=== PATIENT | male | born 1970 | race Caucasian/White ===

== ENCOUNTER 2019-11-13 08:26 | Emergency (ER) | payer BC ==
[~2019-11-13] VITALS: Ht 185.4 cm; Wt 100.0 kg
[2019-11-13] MEDS ORDERED: IV NORMAL SALINE 1,000ML 1,000 ML IV SCH (08:42)
[2019-11-13 08:46] VITALS: BP 161/88
--- NOTE | 2019-11-13 08:48 | PHYS DOC ---
Past History Past Medical History: Anxiety, Hypertension Additional Past Medical Histor: Prediabetic Smoking: Non-smoker General Adult EDM: Chief Complaint: SHORTNESS OF BREATH HPI: HPI: Patient is a 49-year-old male who presents to the emergency department for evaluation. The patient states that he awoke this morning and felt his heart beating fast, which seemed to worsen when he got to work. He denies any significant shortness of breath, (despite shortness of breath being listed as the chief complaint), and has not had any pain, including any chest pain. He denies any exertional dyspnea or exertional chest pain, diaphoresis, nausea, or vomiting. He does admit to an underlying history of anxiety. He states he does feel somewhat anxious today. There are no alleviating or exacerbating factors to his symptoms. Review of Systems: Review of Systems: Constitutional: Denies fever or chills Eyes: Denies change in visual acuity HENT: Denies nasal congestion or sore throat Respiratory: Denies cough or shortness of breath Cardiovascular: Denies chest pain or edema. Reports palpitations. GI: Denies abdominal pain, nausea, vomiting, bloody stools or diarrhea : Denies dysuria Musculoskeletal: Denies back pain or joint pain Integument: Denies rash Neurologic: Denies headache, focal weakness or sensory changes Endocrine: Denies polyuria or polydipsia Lymphatic: Denies swollen glands. Psychiatric: Denies depression. Reports anxiety. Heart Score: Risk Factors: Risk Factors: DM, Current or recent (<one month) smoker, HTN, HLP, family history of CAD, obesity. Risk Scores: Score 0 - 3: 2.5% MACE over next 6 weeks - Discharge Home Score 4 - 6: 20.3% MACE over next 6 weeks - Admit for Clinical Observation Score 7 - 10: 72.7% MACE over next 6 weeks - Early Invasive Strategies Current Medications: Current Meds: Current Medications Medications (Trade) Dose Ordered Sig/Pedro Start Time Stop Time Status Last Admin Dose Admin Lorazepam (Ativan Inj) 1 mg 1X ONCE 11/13/19 08:45 11/13/19 08:46 UNV Sodium Chloride 1,000 ml @ 1,000 mls/hr Q1H 11/13/19 08:42 11/13/19 09:41 UNV Physical Exam: PE: PHYSICAL EXAM: CONSTITUTIONAL: Well developed, well nourished HEAD: normocephalic, atraumatic EENT: PERRL, EOMI. Conjunctivae normal color, sclerae non-icteric; moist mucous membranes. NECK: Supple, non-tender; no meningismus. LUNGS: Lungs CTA, breathing even and unlabored. Normal air movement. HEART: Regular tachycardia, no murmur CHEST: No deformity; non-tender ABDOMEN: The abdomen is soft, and non-tender, no masses or bruits. EXTREM: Normal ROM; no deformity, no calf tenderness. Normal pulses palpable in all extremities. There is no pedal edema. SKIN: No rash; no diaphoresis NEURO: Alert; normal speech and cognition; CN's grossly intact; strength grossly intact without focal deficit. BACK: No CVA TTP. PSYCHIATRIC: The patient appears mildly anxious. Current Patient Data: Labs: Laboratory Tests Test 11/13/19 08:37 White Blood Count 5.7 x10^3/uL Red Blood Count 5.42 x10^6/uL Hemoglobin 16.1 g/dL Hematocrit 46.8 % Mean Corpuscular Volume 86 fL Mean Corpuscular Hemoglobin 30 pg Mean Corpuscular Hemoglobin Concent 34 g/dL Red Cell Distribution Width 13.3 % Platelet Count 279 x10^3/uL Neutrophils (%) (Auto) 65 % Lymphocytes (%) (Auto) 25 % Monocytes (%) (Auto) 8 % Eosinophils (%) (Auto) 1 % Basophils (%) (Auto) 1 % Neutrophils # (Auto) 3.7 x10^3uL Lymphocytes # (Auto) 1.4 x10^3/uL Monocytes # (Auto) 0.5 x10^3/uL Eosinophils # (Auto) 0.1 x10^3/uL Basophils # (Auto) 0.0 x10^3/uL D-Dimer (Ce) 0.64 mg/L Sodium Level 136 mmol/L Potassium Level 4.3 mmol/L Chloride Level 100 mmol/L Carbon Dioxide Level 26 mmol/L Anion Gap 10 Blood Urea Nitrogen 18 mg/dL Creatinine 1.2 mg/dL Estimated GFR (Cockcroft-Gault) 64.4 BUN/Creatinine Ratio 15 Glucose Level 179 mg/dL Calcium Level 9.4 mg/dL Total Bilirubin 0.8 mg/dL Aspartate Amino Transf (AST/SGOT) 27 U/L Alanine Aminotransferase (ALT/SGPT) 56 U/L Alkaline Phosphatase 59 U/L Troponin I Quantitative < 0.017 ng/mL Total Protein 7.6 g/dL Albumin 4.4 g/dL Albumin/Globulin Ratio 1.4 Current Medications Medications (Trade) Dose Ordered Sig/Pedro Route PRN Reason Start Time Stop Time Status Last Admin Dose Admin Sodium Chloride 1,000 ml @ 1,000 mls/hr Q1H IV 11/13/19 08:42 11/13/19 09:41 DC 11/13/19 08:42 Lorazepam (Ativan Inj) 1 mg 1X ONCE IVP 11/13/19 08:45 11/13/19 08:58 DC 11/13/19 09:09 EKG: EKG: [] Sinus tachycardia rate of 118 bpm, normal axis, normal intervals. There are no acute ischemic ST/T changes. Radiology/Procedures: Radiology/Procedures: PROCEDURE: PORTABLE CHEST 1V Examination: PORTABLE CHEST 1V History: Reason: sob / Spl. Instructions: / History: Comparison/Correlation: 04/03/2009 Portable Chest X-ray Exam Findings: Upright frontal views of the chest were obtained. Heart size and pulmonary vasculature are normal. No infiltrate, pneumothorax, or pleural effusion. Bony structures are grossly unremarkable. Impression: No active disease.[] Course & Med Decision Making: Course & Med Decision Making Pertinent Labs and Imaging studies reviewed. (See chart for details) [] 11 AM: The patient's condition remains stable, his heart rate is 100 resting at this time. He is asymptomatic at this time. I discussed test results with the patient, the need for close outpatient follow-up, and return precautions. I did recommend he see his PCP to evaluate for possible elevated thyroid function testing giving his mild tachycardia, add of proportion for what would be expected. Thyroid testing is unavailable at this facility in the emergency department. Dragon Disclaimer: Dragon Disclaimer: This electronic medical record was generated, in whole or in part, using a voice recognition dictation system. Departure Departure: Impression: Primary Impression: Palpitations Disposition: 01 HOME/RESIDENCE PRIOR TO ADM Condition: STABLE Referrals: IDALIA BABIN MD (PCP) Patient Instructions: Acute Bronchitis, Anxiety and Panic Attacks, Nonspecific Tachycardia, Palpitations Additional Instructions: Follow-up with your primary care provider, for further evaluation and testing, as needed. Please call today to make an appointment. Scripts Azithromycin (ZITHROMAX) 250 Mg Tablet 1 PKG PO UD for -, #6 TAB Prov: MARIA D HUIZAR MD 11/13/19 Justification of Admission: Justification of Admission: Justification of Admission Dx: N/A MARIA D HUIZAR MD Nov 13, 2019 08:48
[2019-11-13 09:07] LABS: BASO % 1 % (0-3); EOS # 0.1 x10^3/uL (0.0-0.7); EOS % 1 % (0-3); HEMATOCRIT 46.8 % (39.0-53.0); HEMOGLOBIN 16.1 g/dL (13.0-17.5); LYMPH # 1.4 x10^3/uL (1.0-4.8); LYMPH % 25 % (24-48); MEAN CORPUSCULAR HEMOGLOBIN 30 pg (25-35); MEAN CORPUSCULAR HGB CONC 34 g/dL (31-37); MEAN CORPUSCULAR VOLUME 86 fL (79-100); MONO # 0.5 x10^3/uL (0.0-1.1); MONO % 8 % (0-9); NEUT # 3.7 x10^3uL (1.8-7.7); NEUT % 65 % (31-73); PLATELET COUNT 279 x10^3/uL (140-400); RED BLOOD COUNT 5.42 x10^6/uL (4.30-5.70); RED CELL DISTRIBUTION WIDTH 13.3 % (11.5-14.5); WHITE BLOOD COUNT 5.7 x10^3/uL (4.0-11.0)
--- NOTE | 2019-11-13 09:13 | RAD ---
Examination: PORTABLE CHEST 1V History: Reason: sob / Spl. Instructions: / History: Comparison/Correlation: 04/03/2009 Portable Chest X-ray Exam Findings: Upright frontal views of the chest were obtained. Heart size and pulmonary vasculature are normal. No infiltrate, pneumothorax, or pleural effusion. Bony structures are grossly unremarkable. Impression: No active disease. Electronically signed by: Marco Loja MD (11/13/2019 9:10 AM) [id number]
[2019-11-13 09:20] LABS: CALCIUM 9.4 mg/dL (8.5-10.1); CREATININE 1.2 mg/dL (0.7-1.3); GFR 64.4; POTASSIUM 4.3 mmol/L (3.5-5.1)
[2019-11-13 09:29] LABS: ALBUMIN 4.4 g/dL (3.4-5.0); ALBUMIN/GLOBULIN RATIO 1.4 (1.0-1.7); TOTAL BILIRUBIN 0.8 mg/dL (0.2-1.0); TOTAL PROTEIN 7.6 g/dL (6.4-8.2)
[2019-11-13] MEDS ORDERED: IOHEXOL 350 MG/ML 100 ML VIAL. IV ONE (10:00)
--- NOTE | 2019-11-13 10:55 | RAD ---
Examination: CT angiography chest with IV contrast HISTORY: History of shortness of breath, pulmonary embolism COMPARISON: None available TECHNIQUE: Axial CT angiographic images of chest were performed with IV contrast. Coronal and sagittal 3-D MIP reformats are performed. Exposure: One or more of the following individualized dose reduction techniques were utilized for this examination: 1. Automated exposure control 2. Adjustment of the mA and/or kV according to patient size 3. Use of iterative reconstruction technique FINDINGS: The central airways are patent. The visualized thyroid gland grossly appears unremarkable. The ascending aorta measures 3.7 cm in transverse dimension. Mild coronary artery calcifications. There is no evidence of filling defect identified in the main pulmonary arterial trunk and right and left main pulmonary arteries and the visualized lobar, segmental branch of the pulmonary arteries. Mild tree-in-bud airspace opacities identified in the right middle lobe, bibasilar lungs. The spleen, adrenals grossly appears unremarkable. Mild hepatic steatosis. Probable tiny subcentimeter cyst left kidney. Small hiatal hernia. No evidence of lytic bony destructive lesion. IMPRESSION: 1. No evidence of pulmonary embolism. 2. Faint tree-in-bud airspace opacities identified in the right middle lobe and bibasilar lungs likely infectious or inflammatory etiology. Follow-up to resolution. Electronically signed by: Mikel Hopkins MD (11/13/2019 10:52 AM) [id number]
[2019-11-13] MEDS ORDERED: AZIT250T PO (11:02)
--- NOTE | 2019-11-13 12:13 | EKG ---
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
== END 2019-11-13 11:35 | disposition home or self-care (01) ==
LOC: ER 08:26
DX: R00.2 Palpitations (principal); F41.9 Anxiety disorder, unspecified; I10 Essential (primary) hypertension
CPT/HCPCS: 36415; 71045; 71275; 80053; 84484; 85025; 85379; 93005; 96374; 99285; J2060; J7030; Q9967

== ENCOUNTER 2020-08-23 03:28 | Emergency (ER) | payer BC ==
[~2020-08-23] VITALS: Ht 185.4 cm; Wt 100.0 kg
[2020-08-23 03:28] VITALS: BP 158/98
[~2020-08-23 03:28] MED LIST: AZIT250T PO
--- NOTE | 2020-08-23 03:35 | PHYS DOC ---
Past History Past Medical History: Anxiety, Hypertension Additional Past Medical Histor: Prediabetic Past Surgical History: No Surgical History Smoking: Non-smoker Alcohol Use: None Adult General HPI HPI Patient is a 50-year-old male with a past medical history significant for anxiety and hypertension who presents to the emergency department with a chief complaint of abdominal pain/chest pain. States that he woke up about 2 hours before coming to the emergency department with a mild stomachache, states over the last couple of hours it increased in pain, 6 out of 10, sharp in nature and feels like it is radiating up into his left chest. States he never had anything like this before. States he has been doing well up until now. Denies any recent travel, illnesses, fevers, Covid/flu/cold symptoms, nausea, vomiting, dysuria, diarrhea, hematuria or blood in the stool. Denies any alcohol, tobacco or drug use. Does have a history of heartburn. Review of Systems Review of Systems Review of systems otherwise unremarkable except noted in HPI Allergies Allergies Allergies Coded Allergies Type Severity Reaction Last Updated Verified No Known Drug Allergies 11/13/19 No Physical Exam Physical Exam Constitutional: Well developed, well nourished, no acute distress, non-toxic appearance. [] HENT: Normocephalic, atraumatic, bilateral external ears normal, oropharynx moist, no oral exudates, nose normal. [] Eyes: conjunctiva normal, no discharge. [] Neck: Normal range of motion, no tenderness, supple, no stridor. [] Cardiovascular:Heart rate regular rhythm, no murmur [] Lungs & Thorax: Bilateral breath sounds clear to auscultation [] Abdomen: soft, no tenderness, no masses, no pulsatile masses. [] Skin: Warm, dry, no erythema, no rash. [] Back: no CVA tenderness. [] Extremities: No tenderness, no cyanosis, no clubbing, ROM intact, no edema. [] Neurologic: Alert and oriented X 3, normal motor function, normal sensory function, no focal deficits noted. [] Psychologic: Affect normal, judgement normal, mood normal. [] EKG EKG EKG with a rate of 99, QRS of 106, QTc of 423, no STEMI. [] Radiology/Procedures Radiology/Procedures [] Heart Score C/O Chest Pain: Yes HEART Score for Chest Pain: HEART Score for Chest Pain Response (Comments) Value History Slighlty/Non-Suspicious 0 ECG Normal 0 Age >45 - < 65 1 Risk Factors 1 or 2 Risk Factors 1 Total 2 Risk Factors: Risk Factors: DM, Current or recent (<one month) smoker, HTN, HLP, family history of CAD, obesity. Risk Scores: Risk Factors: DM, Current or recent (<one month) smoker, HTN, HLP, family history of CAD, obesity. Course & Med Decision Making Course & Med Decision Making Patient is a 50-year-old male presents with a chief complaint of abdominal pain with radiation into the chest Vital signs not concerning. Physical exam noted above. EKG noted above and not concerning for STEMI. Troponin not concerning. Chest x-ray not concerning. Given GI cocktail given patient's history of heartburn, esophagitis in the past Discussed all findings with family and recommended a diet exchange engineer the next few days to help with symptoms of GERD as well as initiation of an [id number] PPI which he states he has at home. Also recommended some Tums with meals. Advised to call primary care physician first thing this morning to update on ED visit and set up an appointment as soon as he can to discuss continued evaluation and treatment of his GERD and possible outpatient stress test. Gave strict return precautions to the ED. Family grateful, verbalized understanding and agreed with plan of discharge. [] Dragon Disclaimer Dragon Disclaimer This electronic medical record was generated, in whole or in part, using a voice recognition dictation system. Departure Departure: Impression: Primary Impression: Heartburn Additional Impression: Epigastric abdominal pain Disposition: 01 [place] HOME SELF CARE/HOMELESS Condition: GOOD Referrals: IDALIA BABIN MD (PCP) Patient Instructions: Chest Pain (Nonspecific), Heartburn Additional Instructions: Please read all of the attached information carefully. As discussed please change her diet accordingly to help with symptom control. Please continue taking your [id number] heartburn medicine. As discussed you can also use Tums as needed with meals. Please call your primary care physician first thing this morning to update on ED visit and set up a follow-up as soon as you can for continued evaluation and treatment for possible GERD and need for outpatient stress test. Please come back to the emergency department immediately with new or concerning symptoms as discussed. Problem Qualifiers FE MARTIN MD Aug 23, 2020 03:34
[2020-08-23 03:47] LABS: HEMATOCRIT 46.1 % (39.0-53.0); HEMOGLOBIN 15.5 g/dL (13.0-17.5); RED BLOOD COUNT 5.32 x10^6/uL (4.30-5.70); RED CELL DISTRIBUTION WIDTH 13.2 % (11.5-14.5); WHITE BLOOD COUNT 5.8 x10^3/uL (4.0-11.0)
[2020-08-23 03:57] LABS: CALCIUM 9.2 mg/dL (8.5-10.1); CREATININE 1.1 mg/dL (0.7-1.3); GFR 70.9; POTASSIUM 3.7 mmol/L (3.5-5.1)
[2020-08-23] MEDS ORDERED: ASPIRIN CHEWABLE 81 MG TABLET. PO ONE (04:00)
[2020-08-23 04:03] LABS: ALBUMIN 4.2 g/dL (3.4-5.0); ALBUMIN/GLOBULIN RATIO 1.4 (1.0-1.7); TOTAL BILIRUBIN 0.8 mg/dL (0.2-1.0); TOTAL PROTEIN 7.1 g/dL (6.4-8.2)
--- NOTE | 2020-08-23 04:29 | RAD ---
XR CHEST 1V Clinical History: Reason: chest pain / Spl. Instructions: / History: Technique: AP view of the chest was obtained at 08/23/2020 3:59 AM. Comparison: November 13, 2019. Findings: The cardiomediastinal silhouette is normal. The pulmonary vasculature is normal. The lungs and pleura l margins are clear. Impression: No evidence of an acute cardiopulmonary process. Electronically signed by: Satish Hobbs III, MD (08/23/2020 4:26 AM) [facility]
--- NOTE | 2020-08-23 04:30 | EKG ---
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
[2020-08-23] MEDS ORDERED: LIDO:MAALOX 1:1 20 ML SINGLE DOSE. PO ONE (05:00)
== END 2020-08-23 04:45 | disposition home or self-care (01) ==
LOC: ER 03:28
DX: R10.13 Epigastric pain (principal); R07.89 Other chest pain; I10 Essential (primary) hypertension; F41.9 Anxiety disorder, unspecified
CPT/HCPCS: 36415; 71045; 80053; 83690; 84484; 85027; 93005; 99285-25